=== PATIENT | female | born 1980 | race Two or more races ===

== ENCOUNTER 2017-01-26 14:13 | Emergency (ER) | payer MEDICAID ==
[~2017-01-26] VITALS: Ht 167.6 cm; Wt 90.7 kg
[2017-01-26 14:23] VITALS: BP 126/78
[2017-01-26] MEDS ORDERED: AMMONIA 0.33 ML INHALANT IN ONE (14:24)
== END 2017-01-26 16:24 | disposition left against medical advice (07) ==
LOC: ER 14:13 → EDBD 14:13 → ER 16:24
DX: M54.5 Low back pain (principal); Z53.21 Procedure and treatment not carried out due to patient leaving prior to being seen by health care provider; V43.32XA Unspecified car occupant injured in collision with other type car in nontraffic accident, initial encounter; Y93.89 Activity, other specified; Y92.89 Other specified places as the place of occurrence of the external cause; Y99.8 Other external cause status